=== PATIENT | female | born 1995 | race Caucasian/White ===

== ENCOUNTER 2020-02-26 15:56 | Outpatient (REF) | payer OTHER, SELFPAY ==
[2020-02-26 17:04] LABS: MANUAL DIFF FLAG SCAN; SCAN SMEAR FLAG 1
[2020-02-26 17:06] LABS: Basophils Percent Auto 0.2 % (0-2); Eosinophils Absolute Auto 0.1 X10*3/uL (0.0-0.4); Eosinophils Percent Auto 0.6 % (0-4); Hematocrit 37.5 % (37-47); Hemoglobin 11.3 g/dl (12.0-16.0); Imm Gran Abs Auto 0.01 X10*3/uL (0.00-0.03); Imm Gran Pct Auto 0.1 % (0.0-0.4); Lymphocytes Absolute Auto 2.9 X10*3/uL (1.2-4.9); Lymphocytes Percent Auto 34.6 % (20-40); Mean Corpuscular HGB Conc 30.1 g/dl (31.0-35.0); Mean Corpuscular Hemoglobin 19.6 pg (27.0-33.0); Mean Corpuscular Volume 65.1 fL (80-98); Monocytes Absolute Auto 0.5 X10*3/uL (0.1-1.2); Monocytes Percent Auto 5.5 % (2-11); Platelet Count 202 X10*3/uL (160-400); Red Blood Count 5.76 X10*6/uL (4.20-5.50); Red Cell Distribution Width 15.3 % (11.0-16.0); White Blood Count 8.5 X10*3/uL (4.8-10.8)
[2020-02-26 17:09] LABS: PLT ABN DIST 1
[2020-02-26 17:16] LABS: Alanine Aminotransferase 13 U/L (0-31); Albumin Level 4.2 g/dL (3.5-5.0); Alkaline Phosphatase 47 U/L (39-117); Aspartate Amino Transferase 19 U/L (5-31); Bilirubin Direct 0.2 mg/dL (0.0-0.5); Bilirubin Total 0.5 mg/dL (0.0-1.0); Total Protein 6.8 g/dL (6.5-8.0)
[2020-02-26 17:33] LABS: SLIDE REVIEW VERIFIED
== END 2020-02-26 15:57 | disposition home or self-care (01) ==
LOC: HO.LAB 15:56
PROVIDERS: Visit Provider Psychiatry & Neurology Neurology
DX: G43.009 Migraine without aura, not intractable, without status migrainosus (principal); R21 Rash and other nonspecific skin eruption
CPT/HCPCS: 36415; 80076; 85025

== ENCOUNTER → 2022-06-11 09:22 | Outpatient (BNVA) | payer OTHER, SELFPAY | PROVIDERS: PCP Psychiatry & Neurology Psychiatry; Visit Provider Nurse Practitioner Family | DX: G43.009 Migraine without aura, not intractable, without status migrainosus (principal); H53.9 Unspecified visual disturbance; F90.9 Attention-deficit hyperactivity disorder, unspecified type | CPT/HCPCS: 99202 ==

== ENCOUNTER 2022-07-07 07:45 | Outpatient (REF) | payer OTHER, SELFPAY ==
--- NOTE | 2022-07-07 08:10 | EEG_ITS ---
FINDINGS: Waking background activity consists of a well-defined moderate voltage 10 hertz posterior alpha frequency intermixed anteriorly with low-voltage fast frequencies. Photic stimulation is without activation. Hyperventilation was omitted. Rare instances of sharp configuration waves are seen from the left temporal region. No sleep stages are identified. IMPRESSION: This waking EEG is considered within normal limits. MD BIBIANA Crowder/NETO / [id number]
== END 2022-07-07 07:46 | disposition home or self-care (01) ==
LOC: HO.NEURO 07:45
PROVIDERS: Visit Provider Nurse Practitioner Family
DX: G43.009 Migraine without aura, not intractable, without status migrainosus (principal); H53.9 Unspecified visual disturbance
CPT/HCPCS: 95816

== ENCOUNTER 2023-05-27 11:25 | Outpatient (AMB) | payer OTHER, SELFPAY ==
[2023-05-27 11:33] VITALS: BP 98/7; PULSE 57; O2SAT 100
--- NOTE | 2023-05-27 11:33 | A.OFFVIS_ITS ---
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 Accompanied by: Self / Same As Patient Allergies ciprofloxacin [From Cipro HC] Allergy (Unknown, Verified 05/27/23 11:36) Unknown hydrocortisone [From Cipro HC] Allergy (Unknown, Verified 05/27/23 11:36) Unknown Medication List - Last Reconciled 05/27/23 by RANDALL Owusu magnesium oxide 400 mg PO BEDTIME 30 days norgestimate-ethinyl estradiol 0.25-35 mg-mcg 1 tab PO DAILY riboflavin (vitamin B2) 400 mg PO DAILY 30 days sumatriptan succinate 50 - 100 mg orally at onset of headache, may repeat in 2 hrs PRN; max 2 tabs per day or 4 tabs/week (may take with Advil 600mg) 30 days Vyvanse (lisdexamfetamine) 40 mg PO QAM 60 days NS HPI HPI Comments History of Present Illness Details 28-yr-old female presents for f/u visit. Pt denies any significant interval medical changes. She did have recent lab and hematology work-up for hair loss and itchiness w/o rash. Per pt, PCP had ordered labs, and was concerned about resulst so referred her to Hematology, who thought her results were not concerning. Today she states her headaches are better, however is more concerned w/ her low energy level. Pt reports that everyday she feels like she is a zombie . She has to pry herself out of bed. She continues to have difficulty with focus. Initially, when she started Vyvanse for ADD and these low energy s/s, it did give her more energy and helped with focus, but feels effect has waned. Pt reports chronic sleep difficulties, since childhood. Even if she sleeps an uninterrupted 8 hrs, still wakes up with the low energy. She drags through work with low energy. 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 May snore. She is prone to rub her feet together. Denies transient w/ strong emotion, usual leg cramps. Has tried OTC and prescription sleep aides, Nyquil, Melatonin, Trazodone- helped for a week or two, but then effect waned. Her previous psychiatrist, has diagnosed her with depression, anxiety, ADD, and unspecified bipolar. She has not had a sleep study. She may not have a headaches x's weeks to month. More recently, having milder migraine 3 days per week. Ibuprofen typically works if she takes it at the 1st sign, otherwise it will last longer- 12 hrs. Baseline headache characteristics: Moderate to severe, headache starts as an aching stiffness in her neck and moves into her forehead as a throbbing pain, a/ w photophobia, phonophobia, nausea, fatigue. Postdrome- May have a residual head pain She has been having episodes of orthostatic lightheadedness a/w body tingling and vision goes black x's a few seconds, which usually passes w/o residual symptoms. Then recently, had a near-syncopal episode when she stood up from a sitting position and raised her arms to hug her friend who was taller than her, her body jerked momentarily and she collapsed to the floor- not sure if she had full LOC, afterwards she felt ok. In the last yr, she has had 4 syncopal attacks. Had frequent syncopal attacks when she was younger. She does take fluids. Does not avoid salt. She did a home sitting to standing HR check- HR changed from 80s sitting to 129 on standing. She has noticed episode of her fingers turning white. Also her feet turning purple in the shower. Hands and feet always feel cold. 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 [facility] Medical History Beta thalassemia trait Anxiety and depression PCOS (polycystic ovarian syndrome) History of primary genital syphilis LGSIL on Pap smear of cervix Family History Maternal Grandmother Breast cancer Father Depression Anxiety Social History Alcohol intake: never Patient Tobacco Use Status: Former Tobacco user Quit Date: 09/08/2019 Physical Exam Vital Signs: Last Vital Signs Pulse 57 05/27/23 11:33 BP 98/7 L 05/27/23 11:33 Pulse Ox 100 05/27/23 11:33 Oxygen Delivery Method Room Air 05/27/23 11:33 Const General: cooperative and no acute distress Orientation/consciousness: patient oriented x3 Resp Effort & Inspection: normal respiratory effort and able to speak in complete sentences Neuro General: patient oriented x3 Cranial nerves: Yes CN's II-XII intact bilaterally Cognition (Neuro): normal cognition Psych Appearance: grossly normal Mental Status: mental status grossly normal Speech and movement: Normal speech and movement present Affect: normal affect Attitude: cooperative Assessment & Plan Assessment & Plan (1) Syncope: Code(s): R55 - Syncope and collapse (2) Orthostatic lightheadedness: Code(s): R42 - Dizziness and giddiness (3) Snoring: Code(s): R06.83 - Snoring (4) Fatigue: Code(s): R53.83 - Other fatigue (5) Sleep difficulties: Code(s): G47.9 - Sleep disorder, unspecified (6) Migraine without aura: Code(s): G43.009 - Migraine without aura, not intractable, without status migrainosus (7) ADHD (attention deficit hyperactivity disorder): Code(s): F90.9 - Attention-deficit hyperactivity disorder, unspecified type Plan 03/19/22, Brain MRI report- nonspecific tiny white matter changes- 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 07/07/22, EEG: normal. ? For ADD: Continue Vyvanse 40mg qd for now- until she is able to establish care w/ psychiatry. ? For transient visual aura/loss episodes and near-syncope/syncope: Recent normal eye exam- reassuring EEG- normal. Will request cardiology consult. Will schedule for tilt-table test- will need to hold Vyvanse prior. Take liberal fluids and salt. For fatigue, low energy: Will request labs and hematology notes. HST to assess for sleep apnea. Future considerations: In-lab sleep study, possibly MSLT ? For overall headache management: Continue to optimize good self-care, including but not limited to maintaining a healthy diet, adequate fluid intake, adequate sleep, and engaging in regular physical activity. Track headaches. ? For acute headache treatment: May continue Ibuprofen prn If migraines become more severe, again try Sumatriptan 100mg tab, 1/2 - 1 tab (50-100mg) at onset of headache, MR in 2 hours. Max of 2 tabs (200mg) per 24 hours. May adjunct with OTC Ibuprofen 600mg q 6 hours. Previous acute migraine medication trials: Advil- some effect Acute migraine medication contraindications: None at this time ? For headache prevention medication: Riboflavin 400mg qam Magnesium 400mg qhs Previous migraine prevention medication trials: None Migraine prevention medication contraindications: None at this time ? Follow-up upon review of the above and in clinic in 6 months or sooner prn. Orders: Orders ECG Tilt Table Test Today R42 - Dizziness and giddiness, R55 - Syncope and collapse RT home sleep study Today G47.9 - Sleep disorder, unspecified, R06.83 - Snoring, R53.83 - Other fatigue Referrals Cardiology Referral R42 - Dizziness and giddiness, R55 - Syncope and collapse Coding Level of Care Code Est Pt Level 4 (03229) Diagnoses Syncope R55 Orthostatic lightheadedness R42 Snoring R06.83 Fatigue R53.83 Sleep difficulties G47.9 Migraine without aura G43.009 ADHD (attention deficit hyperactivity disorder) F90.9
== END 2023-05-27 12:20 | disposition home or self-care (01) ==
PROVIDERS: PCP Psychiatry & Neurology Psychiatry; Visit Provider Nurse Practitioner Family
DX: R55 Syncope and collapse (principal); R42 Dizziness and giddiness; R06.83 Snoring; R53.83 Other fatigue; G47.9 Sleep disorder, unspecified; G43.009 Migraine without aura, not intractable, without status migrainosus; F90.9 Attention-deficit hyperactivity disorder, unspecified type
CPT/HCPCS: 99214

== ENCOUNTER → 2023-05-27 11:25 | Outpatient (BNVA) | payer OTHER, SELFPAY | PROVIDERS: PCP Psychiatry & Neurology Psychiatry; Visit Provider Nurse Practitioner Family | DX: R55 Syncope and collapse (principal); R42 Dizziness and giddiness; R06.83 Snoring; R53.83 Other fatigue; G47.9 Sleep disorder, unspecified; G43.009 Migraine without aura, not intractable, without status migrainosus; F90.9 Attention-deficit hyperactivity disorder, unspecified type | CPT/HCPCS: 99212 ==

== ENCOUNTER → 2023-06-03 09:32 | Outpatient (BNV) | payer OTHER, SELFPAY | PROVIDERS: PCP Internal Medicine; Visit Provider Psychiatry & Neurology Neurology | DX: R06.83 Snoring (principal); R40.0 Somnolence | CPT/HCPCS: 95806 ==

== ENCOUNTER → 2023-06-03 10:30 | Outpatient (REF) | payer OTHER, SELFPAY | LOC: HO.SL 10:30 | PROVIDERS: PCP Internal Medicine; Visit Provider Nurse Practitioner Family | DX: G47.9 Sleep disorder, unspecified (principal); R06.83 Snoring; R53.83 Other fatigue | CPT/HCPCS: 95806 ==

== ENCOUNTER 2023-09-16 09:40 | Outpatient (AMB) | payer OTHER, SELFPAY ==
--- NOTE | 2023-09-16 09:47 | MHC.OFFVIS ---
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 Intake Note: New patient dx synocpe with ekg and orthostatic bp c/o passing out in the past is better now at being hydrated Grant Administrator Required: No Allergies ciprofloxacin [From Cipro HC] Allergy (Unknown, Verified 05/27/23 11:36) Unknown hydrocortisone [From Cipro HC] Allergy (Unknown, Verified 05/27/23 11:36) Unknown Medication List - Last Reconciled 09/16/23 by Thomas Covington MD norgestimate-ethinyl estradiol 0.25-35 mg-mcg 1 tab PO DAILY sumatriptan succinate 50 - 100 mg orally at onset of headache, may repeat in 2 hrs PRN; max 2 tabs per day or 4 tabs/week (may take with Advil 600mg) 30 days Vyvanse (lisdexamfetamine) 40 mg PO QAM 60 days NS HPI Comments Details: Thank you for referring Shirley in cardiology consultation today for management of syncope. She is a pleasant 28-year-old female who has had episodes of syncope ever since she was a child. 0 time she has learned to manage these episodes. She says a typical episode she had initially get lightheaded especially happening and only upright positioning and then if she would not take care of it she would start getting warm/hot and subsequently she would start getting black vision and she would then pass out. Over time she has learned that she needs to right away lie down and raised her legs and the symptoms would ronna within less than a minute. She had a tilt-table test recently at [facility] which showed that with orthostatic stress her heart rate did go up but remained stable and blood pressure did not drop, however she did not have any symptoms but as soon as she was laid down her heart rate drop quite a bit. Patient says that even now when she tends to jump up quickly she gets symptoms of lightheadedness. She had last episode of syncope about 2 months ago. She drinks about 32 oz of fluid a day. However she has been trying to maintain activity level and has been exercising doing Pilates as well as supine exercises and tries to walk whenever she can. She said this condition has significant limitations in her lifestyle. 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 [facility] Medical History Beta thalassemia trait Anxiety and depression PCOS (polycystic ovarian syndrome) History of primary genital syphilis LGSIL on Pap smear of cervix Family History Maternal Grandmother Breast cancer Father Depression Anxiety Social History Alcohol intake: never Patient Tobacco Use Status: Former Tobacco user Review of Systems Const Denies chills, Denies daytime sleepiness, Denies fatigue, Denies fever(s), Denies frequent falls, Denies poor appetite, Denies snoring, Denies stops breathing during sleep, Denies weakness, Denies weight gain and Denies weight loss Eyes Denies loss of vision ENT Denies dizziness and Denies hearing loss Card Denies chest pain, Denies claudication, Denies leg edema, Denies lightheadedness, Denies palpitations, Denies dyspnea, Denies dyspnea on exertion and Denies orthopnea Resp Denies cough, Denies excessive phlegm production, Denies dyspnea, Denies dyspnea on exertion, Denies snoring and Denies wheezing GI Denies abdominal pain, Denies hematochezia, Denies change in bowel habits, Denies nausea and Denies vomiting Denies urinary frequency and Denies dysuria Musc Denies arthralgias, Denies muscle weakness, Denies numbness and Denies other (frequent falls) Skin/Breast Denies nail changes and Denies rash Neuro Denies Abnormal speech present, Denies dizziness, Denies frequent falls, Denies loss of vision, Denies memory loss, Denies numbness and Denies weakness Psych Denies depression and Denies memory loss Endo Denies fatigue and Denies palpitations Samuel/Lymph Reports easy bruising and Reports other (anemia) Aller/Immun Denies wheezing Physical Exam Vital Signs: Last Vital Signs Pulse 86 09/16/23 10:04 BP 110/83 09/16/23 10:04 BMI result Body Mass Index 24.2 Const General: cooperative, comfortable, no acute distress, well developed, alert, awake and Physically active Nutritional Appearance: average body habitus and well nourished Orientation/consciousness: patient oriented x3 Limitations: no limitations HEENT Head: Yes normocephalic and Yes atraumatic Neck Neck: Yes trachea midline, Yes supple and Yes no JVD Resp Effort & Inspection: normal respiratory effort Auscultation: clear to auscultation bilaterally Cardio Jugular venous distension: no JVD Palpation: normal PMI Rate: regular rate Rhythm: regular rhythm Heart sounds: S1 normal heart sound present, S2 normal heart sound present, no click, no gallops, no murmurs and no rubs GI Auscultation: normal bowel sounds Skin General skin exam: no rashes or lesions noted Neuro General: patient oriented x3 and no focal motor deficits Speech: No Abnormal speech present Extrem General: Yes no clubbing, cyanosis or edema Psych Appearance: grossly normal Office Procedures EKG Details: EKG shows normal sinus rhythm normal EKG with normal axis and normal intervals [id number], Complete Assessment & Plan Assessment & Plan (1) Syncope: Code(s): R55 - Syncope and collapse Category: Medical Plan: Syncope in this young woman for many many years and has adapted her lifestyle and has avoided passing out when she is aware that she would get her symptoms. She is very typical symptoms prior to passing out and she is able to control them. I have discussed with her about possible diagnosis including postural orthostatic tachycardia syndrome, saw some evidence of orthostatic tachycardia today without drop in her blood pressure versus possibility of still vasovagal/neurocardiogenic syncope. Her tilt-table test was suboptimal. This did not establish a diagnose although suggested that she does have some orthostatic tachycardia when she is put in upright position. We discussed about management of this condition. We discussed about pathophysiology of both POTS as well as vasovagal syncope. Treatment of both this condition will include aggressive hydration with much increase water intake as well as salt intake which will improve her symptoms dramatically. We also continued to discuss about orthostatic precautions. She understands them well. Advised to maintain aerobic conditioning improve vagal tone. If she fails with this management plan can consider treatment with volume expanded such as Florinef 1st and if that fails consider vaso constriction therapy such as midodrine. She also was having symptoms of disequilibrium, consider workup for sensory neuropathy. Will follow up in the clinic in 1 year's time, sooner p.r.n.. Thank you for allowing me to partake in her care Coding Level of Care Code New Pt Level 4 (63632) Diagnoses Syncope R55 CPT Codes EKG - CPT: [id number], Complete ([id number])
[2023-09-16 09:48] VITALS: BP 109/70; PULSE 66; BMI 24.2
[2023-09-16 10:00] VITALS: BP 109/70; PULSE 68
[2023-09-16 10:04] VITALS: BP 110/83; PULSE 86
== END 2023-09-16 10:23 | disposition home or self-care (01) ==
PROVIDERS: PCP Internal Medicine; Visit Provider Internal Medicine Cardiovascular Disease
DX: R55 Syncope and collapse (principal)
CPT/HCPCS: 93010; 99204

== ENCOUNTER → 2023-09-16 09:40 | Outpatient (BNVA) | payer OTHER, SELFPAY | PROVIDERS: PCP Internal Medicine; Visit Provider Internal Medicine Cardiovascular Disease | DX: R55 Syncope and collapse (principal) | CPT/HCPCS: 93005; 99202 ==

== ENCOUNTER 2023-11-25 09:14 | Outpatient (AMB) | payer OTHER, SELFPAY ==
--- NOTE | 2023-11-25 09:15 | MHC.OFFVIS ---
Intake Visit Reasons: Follow up Intake Note: Patient presents for follow up Allergies ciprofloxacin [From Cipro HC] Allergy (Unknown, Verified 11/25/23 09:15) Unknown hydrocortisone [From Cipro HC] Allergy (Unknown, Verified 11/25/23 09:15) Unknown Medication List - Last Reconciled 11/25/23 by RANDALL Owusu lisdexamfetamine (Vyvanse) 50 mg PO QAM 60 days norgestimate-ethinyl estradiol 0.25-35 mg-mcg 1 tab PO DAILY sumatriptan succinate 50 - 100 mg orally at onset of headache, may repeat in 2 hrs PRN; max 2 tabs per day or 4 tabs/week (may take with Advil 600mg) 30 days HPI Comments Details: 28-yr-old female presents for f/u visit of migraine, near-syncope/OH s/s, ADHD. Pt denies any significant interval medical changes. She did have recent lab and hematology work-up for hair loss and itchiness w/o rash. Per pt, PCP had ordered labs, and was concerned about resulst so referred her to Hematology, who thought her results were not concerning. Today she states her headaches are better, however is more concerned w/ her low energy level. She is still feeling low energy- maybe related to weather/season changes. She had stopped Vyvanse during her cardiac testing. She did notice more cognitive fog while off of the Vyvanse. Since resuming it, her brain fog is less, but feels that it is hard to get through the her days, feels drained, feels like a lot of effort to get through her day. 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 She is having difficulty initiating tasks on her days off. She is sleeping more- 9pm-4am. Sleeping better. the HST was normal- AHI 0/hr, O2 abdoulaye 94%. She has not had a psychiatrist or a therapist in about 2 years. Her previous psychiatrist, has diagnosed her with depression, anxiety, ADD, and unspecified bipolar. She continues to have periods of migraine- waxes and wanes some. She is noticing more headache during her menstrual cycle- more mild to moderate. Her cycle is regular. She has had 2-3 severe migraines since the last visit. Baseline headache characteristics: Moderate to severe, headache starts as an aching stiffness in her neck and moves into her forehead as a throbbing pain, a/w photophobia, phonophobia, nausea, fatigue. Postdrome- May have a residual head pain She has seen cardiology and had suboptimal tilt table test. She was advise dto increase fluids and salt intake, pt is trying to do this. Baseline OH s/s: orthostatic lightheadedness a/w body tingling and vision goes black x's a few seconds, which usually passes w/o residual symptoms. Has had a near-syncopal episode when she stood up from a sitting position and raised her arms to hug her friend who was taller than her, her body jerked momentarily and she collapsed to the floor- not sure if she had full LOC, afterwards she felt ok. In [id number], she has had 4 syncopal attacks. Had frequent syncopal attacks when she was younger. She has noticed episode of her fingers turning white. Also her feet turning purple in the shower. Hands and feet always feel cold. 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 From [email or web address] Latest Ref Rng & Units 08/27/2022 10/22/2022 White Blood Cell Count 4.8 - 10.8 x10-3/uL 5.0 ? RBC 3.8 - 4.8 x10-6/uL 5.4(H) ? Hemoglobin 11.5 - 16.0 g/dL 10.5(L) ? Hematocrit 35 - 47 % 34.6(L) ? MCV 79 - 98 fL 63.6(L) ? MEAN CORPUSCULAR HEMOGLOBIN 27 - 32 pg 19.3(L) ? MCHC 32 - 37 g/dL 30.3(L) ? RED CELL DISTRIBUTION WIDTH 11 - 15 % 16.5(H) ? Platelet Count 130 - 400 x10-3/uL 242 ? MPV 7 - 11 fL 11.1(H) ? NRBC % AUTO <1 % 0.0 ? NEUTROPHILS % 46.6 ? LYMPHOCYTES % 38.7 ? MONO % % 10.3 ? EOSINOPHILS % 3.6 ? BASO % % 0.6 ? IMMATURE GRANULOCYTES % % 0.2 ? NRBC # AUTO <0.1 x10-3/uL 0.00 ? NEUT # 1.5 - 7.0 x10-3/uL 2.31 ? LYMPH # 1 - 5.0 x10-3/uL 1.92 ? MONO # 0.2 - 1.0 x10-3/uL 0.51 ? EOS # 0 - 0.5 x10-3/uL 0.18 ? BASO # 0 - 0.2 x10-3/uL 0.03 ? IMMATURE GRANULOCYTES # 0 - 0.03 x10-3/uL 0.01 ? GLUCOSE, PLASMA 70 - 100 mg/dL 91 ? Blood Urea Nitrogen 5 - 25 mg/dL 15 ? creatinine 0.5 - 1.1 mg/dL 0.79 ? GLOMERULAR FILTRATION RATE >60 104 ? NA (WB) 135 - 145 mEq/L 141 ? K 3.5 - 5.5 mmol/L 4.3 ? Chloride 96 - 110 mmol/L 110 ? CARBON DIOXIDE 21 - 32 mmol/L 28 ? ANION GAP 3 - 11 3 ? CALCIUM 8.5 - 10.5 mg/dL 8.6 ? PROTEIN, TOTAL 6.0 - 8.0 G/dL 6.5 ? Albumin 3.2 - 5.0 G/dL 3.4 ? AST (SGOT) 10 - 42 U/L 22 ? ALT (SGPT) 10 - 60 U/L 33 ? Bilirubin, total 0.0 - 1.4 mg/dL 0.4 ? Alk Phos 42 - 121 U/L 52 ? TSH 0.40 - 4.00 uIU/ml 1.45 0.95 IRON BINDING CAPACITY 250 - 450 ug/dL 320 330 IRON, TOTAL 40 - 150 ug/dL 107 111 % FE SATURATION 15 - 50 % 33 34 VITAMIN D, 25-HYDROXY 30 - 80 ng/mL 23(L) ? FERRITIN 8 - 252 ng/mL 66 37 T-4 (THYROXINE), FREE 0.70 - 1.80 ng/dL ? 0.93 PFSH Medical History Beta thalassemia trait Anxiety and depression PCOS (polycystic ovarian syndrome) History of primary genital syphilis LGSIL on Pap smear of cervix Family History Maternal Grandmother Breast cancer Father Depression Anxiety Social History Alcohol intake: never Patient Tobacco Use Status: Former Tobacco user Physical Exam Const General: cooperative and no acute distress Orientation/consciousness: patient oriented x3 Resp Effort & Inspection: normal respiratory effort and able to speak in complete sentences Neuro General: patient oriented x3 Cognition (Neuro): normal cognition Psych Appearance: grossly normal Mental Status: mental status grossly normal Speech and movement: Normal speech and movement present Affect: normal affect Attitude: cooperative Telehealth Telehealth Telehealth Platform: [employer] Location of provider rendering services: practice address Location of patient: address on file Patient Identification confirmed using: Name, : Yes Telehealth method: voice only Patient verbally consented to treatment: Yes Patient verbally consented to billing insurance company: Yes Patient informed of any privacy concerns related to visit: Yes Minutes spent on Phone/Video with Pt.: 23 Assessment & Plan Assessment & Plan (1) ADHD (attention deficit hyperactivity disorder): Code(s): F90.9 - Attention-deficit hyperactivity disorder, unspecified type Category: Medical (2) Migraine without aura: Code(s): G43.009 - Migraine without aura, not intractable, without status migrainosus Category: Medical (3) Visual aura: Comment: not a/w headache or neck stiffness, ? migraine aura w/o headache, ? seizurem ? Cv etiology. 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 07/07/22, EEG: normal. ? For ADD, fatigue, low energy, poor motivation, taxing effort to perform daily activities: HST was normal. Reviewed previous labd from 2022- chronic anemia, vit d def. Will check labs for common etiologies. Increase Vyvanse from 40mg to 50mg qd to see if these s/s improve. Will request psychiatry's opinion. Pt advised to establish care w/a therapist- may benefit from seeing a therapist w/ expertise in ADD. Future considerations: In-lab sleep study, possibly MSLT ? For transient visual aura/loss episodes and near-syncope/syncope: Reviewed cardiology notes. Continue liberal fluid and salt intake. For overall headache management: Continue to optimize good self-care, including but not limited to maintaining a healthy diet, adequate fluid intake, adequate sleep, and engaging in regular physical activity. Track headaches. ? For acute headache treatment: May continue Ibuprofen prn Sumatriptan 100mg tab, 1/2 - 1 tab (50-100mg) at onset of headache, MR in 2 hours. Max of 2 tabs (200mg) per 24 hours. May adjunct with OTC Ibuprofen 600mg q 6 hours. Previous acute migraine medication trials: Advil- some effect Acute migraine medication contraindications: None at this time ? For headache prevention medication: Riboflavin 400mg qam Magnesium 400mg qhs Previous migraine prevention medication trials: None Migraine prevention medication contraindications: None at this time ? Follow-up upon review of the above and in clinic in 6 months or sooner prn. Orders: Orders TSH reflex Free T4 Today D64.9 - Anemia, unspecified, E55.9 - Vitamin D deficiency, unspecified, R42 - Dizziness and giddiness, R53.83 - Other fatigue, Z86.19 - Personal history of other infectious and parasitic diseases Ferritin Today D64.9 - Anemia, unspecified, E55.9 - Vitamin D deficiency, unspecified, R42 - Dizziness and giddiness, R53.83 - Other fatigue, Z86.19 - Personal history of other infectious and parasitic diseases Complete Blood Count Auto Diff Today D64.9 - Anemia, unspecified, E55.9 - Vitamin D deficiency, unspecified, R42 - Dizziness and giddiness, R53.83 - Other fatigue, Z86.19 - Personal history of other infectious and parasitic diseases Comprehensive Met. Panel Today D64.9 - Anemia, unspecified, E55.9 - Vitamin D deficiency, unspecified, R42 - Dizziness and giddiness, R53.83 - Other fatigue, Z86.19 - Personal history of other infectious and parasitic diseases ALDAIR Reflex Titer and Pattern Today D64.9 - Anemia, unspecified, E55.9 - Vitamin D deficiency, unspecified, R42 - Dizziness and giddiness, R53.83 - Other fatigue, Z86.19 - Personal history of other infectious and parasitic diseases Rheumatoid Factor Today D64.9 - Anemia, unspecified, E55.9 - Vitamin D deficiency, unspecified, R42 - Dizziness and giddiness, R53.83 - Other fatigue, Z86.19 - Personal history of other infectious and parasitic diseases Vitamin D 25-OH (D2 and D3) Today D64.9 - Anemia, unspecified, E55.9 - Vitamin D deficiency, unspecified, R42 - Dizziness and giddiness, R53.83 - Other fatigue, Z86.19 - Personal history of other infectious and parasitic diseases Vitamin B12 and Folate Today D64.9 - Anemia, unspecified, E55.9 - Vitamin D deficiency, unspecified, R42 - Dizziness and giddiness, R53.83 - Other fatigue, Z86.19 - Personal history of other infectious and parasitic diseases Homocysteine Today D64.9 - Anemia, unspecified, E55.9 - Vitamin D deficiency, unspecified, R42 - Dizziness and giddiness, R53.83 - Other fatigue, Z86.19 - Personal history of other infectious and parasitic diseases Methylmalonic Acid Today D64.9 - Anemia, unspecified, E55.9 - Vitamin D deficiency, unspecified, R42 - Dizziness and giddiness, R53.83 - Other fatigue, Z86.19 - Personal history of other infectious and parasitic diseases IRON PROFILE Today D64.9 - Anemia, unspecified, E55.9 - Vitamin D deficiency, unspecified, R42 - Dizziness and giddiness, R53.83 - Other fatigue, Z86.19 - Personal history of other infectious and parasitic diseases Hemoglobin A1c Today D64.9 - Anemia, unspecified, E55.9 - Vitamin D deficiency, unspecified, R42 - Dizziness and giddiness, R53.83 - Other fatigue, Z86.19 - Personal history of other infectious and parasitic diseases CRP High Sensitivity Today D64.9 - Anemia, unspecified, E55.9 - Vitamin D deficiency, unspecified, R42 - Dizziness and giddiness, R53.83 - Other fatigue, Z86.19 - Personal history of other infectious and parasitic diseases Erythrocyte Sedimentation Rate Today D64.9 - Anemia, unspecified, E55.9 - Vitamin D deficiency, unspecified, R42 - Dizziness and giddiness, R53.83 - Other fatigue, Z86.19 - Personal history of other infectious and parasitic diseases Referrals Psychiatry Outpatient Consultation Service F32.A - Depression, unspecified, F41.9 - Anxiety disorder, unspecified, F90.9 - Attention-deficit hyperactivity disorder, unspecified type, R53.83 - Other fatigue Medications: New lisdexamfetamine (Vyvanse) Partial Fill upon patient request. 50 mg PO QAM 60 days 60 caps 0RF F90.9 - Attention-deficit hyperactivity disorder, unspecified type Discontinued Vyvanse (lisdexamfetamine) partial fill allowed per patient request Discontinued Reason: Doctor's Order 40 mg PO QAM 60 days 60 caps 0RF NS F90.9 - Attention-deficit hyperactivity disorder, unspecified type Coding Level of Care Code Tele Est Pt Level 4 (27974) Complex EM visit Add On G2211 Diagnoses ADHD (attention deficit hyperactivity disorder) F90.9 Migraine without aura G43.009 Visual aura H53.9 Orthostatic lightheadedness R42 Fatigue R53.83 Syncope R55
== END 2023-11-25 14:59 | disposition home or self-care (01) ==
LOC: HO.HSMS 09:14
PROVIDERS: PCP Internal Medicine; Visit Provider Nurse Practitioner Family
DX: F90.9 Attention-deficit hyperactivity disorder, unspecified type (principal); G43.009 Migraine without aura, not intractable, without status migrainosus; H53.9 Unspecified visual disturbance; R42 Dizziness and giddiness; R53.83 Other fatigue; R55 Syncope and collapse
CPT/HCPCS: 99214; G2211

== ENCOUNTER → 2023-11-25 09:14 | Outpatient (BNVA) | payer OTHER, SELFPAY | PROVIDERS: PCP Internal Medicine; Visit Provider Nurse Practitioner Family | DX: R55 Syncope and collapse (principal); R42 Dizziness and giddiness; R06.83 Snoring; R53.83 Other fatigue; G47.9 Sleep disorder, unspecified ==